=== PATIENT | female | born 1975 | race Caucasian/White ===

== ENCOUNTER 2016-04-25 20:19 | Emergency (ER) | payer MEDICAID ==
[~2016-04-25] VITALS: Ht 154.9 cm; Wt 58.9 kg
[~2016-04-25 20:19] MED LIST: CIPR500T4 PO; TRAM50TA2 PO
[2016-04-25 20:33] VITALS: Ht 154.9 cm; Wt 58.9 kg
[2016-04-25] MEDS ORDERED: ONDANSETRON (ODT) 4 MG TAB ODT STA (21:46)
[2016-04-25] MEDS ORDERED: KETOROLAC 30 MG INJ IM STA (21:46)
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
[2016-04-25 22:00] LABS: URINE BLOOD (Dip) POC 1+ (NEGATIVE)
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
[2016-04-25] MEDS ORDERED: IBUP400T22 PO (23:30)
[2016-04-25] MEDS ORDERED: ONDA4TAB8 PO (23:30)
[2016-04-25 23:56] VITALS: BP 111/66; PULSE 80; RESP 16
== END 2016-04-25 23:56 | disposition home or self-care (01) ==
LOC: FTE 20:19
DX: S09.90XA Unspecified injury of head, initial encounter (principal); R11.10 Vomiting, unspecified; R51 Headache; V43.62XA Car passenger injured in collision with other type car in traffic accident, initial encounter
CPT/HCPCS: 70450; 71020; 81003; 96372; J1885; Z7502; Z7610

== ENCOUNTER 2017-03-10 14:06 | Emergency (ER) | END 2017-03-10 17:14 | disposition home or self-care (01) ==

== ENCOUNTER 2018-08-23 18:30 | Emergency (ER) | payer MEDICAID ==
[~2018-08-23] VITALS: Ht 154.9 cm; Wt 61.2 kg
[~2018-08-23 18:30] MED LIST changes: +BENZ-6 PO; +IBUP-1542 PO; +IBUP-1561 PO; +ONDA4TAB8 PO; +PENI500T PO
[2018-08-23 19:03] VITALS: Ht 154.9 cm; Wt 61.2 kg
[2018-08-23 22:35] VITALS: BP 125/66; PULSE 78; RESP 20
--- NOTE | 2018-08-23 22:35 | ERD ---
ER Documentation Chief Complaint Chief Complaint PT REPORTS LOWER ABD PAIN X 3 DAYS DENIES N/V HPI The patient is a 42-year-old female, presenting to the ER because of lower abdominal pain with dysuria for the last 2 days, had similar symptoms previously, denies fever, chills, neck pain, chest pain, lower back pain, diarrhea, constipation. She does not smoke nor drink, LMP was August 09, 2017 Medical history: None Past surgical history: Cholecystectomy, tubal ligation ROS All systems reviewed and are negative except as per history of present illness. Medications Home Meds Active Scripts Ibuprofen* (Motrin*) 600 Mg Tab, 600 MG PO Q6H PRN for PAIN AND OR ELEVATED TEMP, #30 TAB Prov:BARBARA HERNANDEZ MD 08/23/18 Phenazopyridine Hcl* (Pyridium*) 200 Mg Tab, 200 MG PO TID PRN for URINARY PAIN, #6 TAB Prov:BARBARA HERNANDEZ MD 08/23/18 Sulfamethoxazole/Trimethoprim* (Bactrim Ds* Tablet) 1 Each Tablet, 1 TAB PO BID, #14 TAB Prov:BARBARA HERNANDEZ MD 08/23/18 Benzonatate* (Tessalon Perle*) 100 Mg Capsule, 100 MG PO Q8H PRN for COUGH for 3 Days, CAP Prov:MORENO TAPIA 03/10/17 Ibuprofen* (Motrin*) 600 Mg Tab, 600 MG PO Q6, #30 TAB Prov:MORENO TAPIA 03/10/17 Penicillin V Potassium* (Penicillin V K*) 500 Mg Tab, 500 MG PO TID for 10 Days, TAB Prov:MORENO TAPIA 03/10/17 Ondansetron Hcl* (Zofran*) 4 Mg Tablet, 4 MG PO Q8H PRN for NAUSEA AND/OR VOMITING, #30 TAB Prov:PROMISE SUE 04/25/16 Ibuprofen* (Motrin*) 400 Mg Tab, 400 MG PO Q6H PRN for PAIN AND OR ELEVATED TEMP, #30 TAB Prov:RICKY SUEAR F 04/25/16 Tramadol HCl (Tramadol HCl) 50 Mg Tablet, 50 MG PO Q4 PRN for PAIN, #20 TAB Prov:LUIS PEÑALOZA 12/04/15 Ciprofloxacin Hcl* (Ciprofloxacin Hcl*) 500 Mg Tablet, 500 MG PO BID for 5 Days, TAB Prov:LUIS PEÑALOZA 12/04/15 Allergies Allergies: Coded Allergies: No Known Allergies (Verified Allergy, Mild, 03/10/17) PMhx/Soc History of Surgery: Yes (gallbladder, tubal ligation) Anesthesia Reaction: No Hx Neurological Disorder: No Hx Respiratory Disorders: No Hx Cardiac Disorders: No Hx Psychiatric Problems: No Hx Miscellaneous Medical Probl: No Hx Alcohol Use: No Hx Substance Use: No Hx Tobacco Use: No Physical Exam Vitals Vital Signs Date Temp Pulse Resp B/P (MAP) Pulse Ox O2 O2 Flow FiO2 Time Delivery Rate 08/23/18 98.6 78 20 125/66 98 Room Air 22:35 (85) 08/23/18 98.4 73 16 109/59 99 19:03 (76) Physical Exam Const: No acute distress. Head: Atraumatic. Eyes: Normal Conjunctiva. ENT: Normal External Ears, Nose and Mouth. Neck: Full range of motion. No meningismus. Resp: Clear to auscultation bilaterally. Cardio: Regular rate and rhythm. Abd: Soft, non distended, normal bowel sounds, minimal suprapubic abdominal discomfort, no right lower quadrant/right upper quadrant/epigastric/CVA tenderness Skin: No petechiae or rashes. Back: No midline or flank tenderness. Ext: No cyanosis, or edema. Neur: Awake and alert. No focal deficit Psych: Normal Mood and Affect. Result Diagram: 08/23/18224008/23/182240 Results 24 hrs Laboratory Tests Test 08/23/18 22:41 08/23/18 22:44 08/23/18 22:48 White Blood Count 10.1 10^3/ul Red Blood Count 4.88 10^6/ul Hemoglobin 14.0 g/dl Hematocrit 43.4 % Mean Corpuscular Volume 88.9 fl Mean Corpuscular Hemoglobin 28.7 pg Mean Corpuscular 32.3 g/dl Hemoglobin Concent Red Cell Distribution Width 12.1 % Platelet Count 255 10^3/UL Mean Platelet Volume 11.0 fl Immature Granulocytes % 0.500 % Neutrophils % 51.1 % Lymphocytes % 39.2 % Monocytes % 8.0 % Eosinophils % 0.8 % Basophils % 0.4 % Nucleated Red Blood Cells % 0.0 /100WBC Immature Granulocytes # 0.050 10^3/ul Neutrophils # 5.1 10^3/ul Lymphocytes # 4.0 10^3/ul Monocytes # 0.8 10^3/ul Eosinophils # 0.1 10^3/ul Basophils # 0.0 10^3/ul Nucleated Red Blood Cells # 0.0 10^3/ul Sodium Level 140 mmol/L Potassium Level 3.8 mmol/L Chloride Level 101 mmol/L Carbon Dioxide Level 28 mmol/L Anion Gap 11 Blood Urea Nitrogen 16 mg/dl Creatinine 0.69 mg/dl Est Glomerular Filtrat Rate mL/min > 60 mL/min Glucose Level 95 mg/dl Calcium Level 9.8 mg/dl Total Bilirubin 0.2 mg/dl Direct Bilirubin 0.00 mg/dl Indirect Bilirubin 0.2 mg/dl Aspartate Amino Transf (AST/SGOT) 22 IU/L Alanine 15 IU/L Aminotransferase (ALT/SGPT) Alkaline Phosphatase 52 IU/L Total Protein 8.3 g/dl Albumin 4.7 g/dl Globulin 3.60 g/dl Albumin/Globulin Ratio 1.30 Lipase 122 U/L POC Beta HCG, Qualitative NEGATIVE Bedside Urine pH (LAB) 7.0 Bedside Urine Protein (LAB) Negative Bedside Urine Glucose (UA) Negative Bedside Urine Ketones (LAB) Negative Bedside Urine Blood Trace-intact Bedside Urine Nitrite (LAB) Negative Bedside Urine Leukocyte Esterase 1+ (L Current Medications Medications Dose Sig/Maurice Start Time Status Last (Trade) Ordered Route PRN Stop Time Admin Dose Reason Admin Sodium 1,000 ml @ Q1H STAT 08/23/18 DC 08/23/18 Chloride 1,000 mls/hr IV 22:38 22:53 08/23/18 23:37 Ketorolac 30 mg ONCE ONCE 08/23/18 DC 08/23/18 Tromethamine IV 22:53 23:33 (Toradol) 08/23/18 22:54 1 tab ONCE ONCE 08/23/18 DC 08/23/18 Trimethoprim/ PO 23:00 23:33 08/23/18 23:01 Sulfamethoxaz ole (Bactrim (Ds)) Procedures/MDM MEDICAL MAKING DECISION: The patient is a 42-year-old female, presenting with acute cystitis, was treated with 1 L normal saline for clinical dehydration, Toradol 30 mg IV for pain and Bactrim DS for acute cystitis with good response, is above outpatient follow-up The differential diagnoses considered include but are not limited to choledocholithiasis, cholangitis, pancreatitis, hepatitis, gastritis, peptic ulcer disease, gastric ulcer, appendicitis, cystitis, diverticulitis, partial small bowel obstruction. Departure Diagnosis: Primary Impression: Abdominal pain Additional Impression: UTI (urinary tract infection) Condition: Good Comments She was discharged with Bactrim DS, Pyridium, Motrin I discussed the findings with the patient. I advised the patient to follow-up with the primary physician in about 2-3 days, sooner if needed and return if any concern. Disclaimer: Inadvertent spelling and grammatical errors are likely due to EHR/dictation software use and do not reflect on the overall quality of patient care. Also, please note that the electronic time recorded on this note does not necessarily reflect the actual time of the patient encounter. BARBARA HERNANDEZ MD Aug 23, 2018 22:35
[2018-08-23] MEDS ORDERED: SOD CHLORIDE 0.9% 1,000 ML IV STA (22:38)
[2018-08-23] MEDS ORDERED: KETOROLAC 15 MG INJ IV ONE (22:53)
[2018-08-23] MEDS ORDERED: TRIMETHOPRIM/SULFAMETHOX (DS) TAB PO ONE (23:00)
[2018-08-23] MEDS ORDERED: IBUP-1542 PO (23:17)
[2018-08-23] MEDS ORDERED: PHEN-538 PO (23:17)
[2018-08-23] MEDS ORDERED: SULF1TAB31 PO (23:17)
== END 2018-08-23 23:43 | disposition home or self-care (01) ==
LOC: E/R 18:30
DX: N39.0 Urinary tract infection, site not specified (principal)
CPT/HCPCS: 36415; 80053; 81003; 81025; 83690; 85025; 96374; J1885; J7030; Z7502; Z7610

== ENCOUNTER 2018-09-19 21:42 | Emergency (ER) | payer MEDICAID ==
[~2018-09-19] VITALS: Ht 154.9 cm; Wt 61.7 kg
[~2018-09-19 21:42] MED LIST changes: -BENZ-6 PO; -CIPR500T4 PO; -IBUP-1561 PO; -ONDA4TAB8 PO; -PENI500T PO; +PHEN-538 PO; +SULF1TAB31 PO; -TRAM50TA2 PO
[2018-09-19 21:48] VITALS: Ht 154.9 cm; Wt 61.7 kg
[2018-09-20] MEDS ORDERED: IBUPROFEN 600 MG TAB PO ONE
[2018-09-20] MEDS ORDERED: LORAZEPAM 1 MG TAB PO ONE
[2018-09-20] MEDS ORDERED: IBUP-1542 PO (01:01)
[2018-09-20] MEDS ORDERED: HYDR-843 PO (01:01)
[2018-09-20 01:07] VITALS: BP 109/66; PULSE 69; RESP 19
--- NOTE | 2018-09-20 01:27 | ERD ---
ER Documentation Chief Complaint Chief Complaint LEFT BREAST PAIN STARTED AT 1630; DENIES SOB, DENIES CP HPI 43-year-old female presents to the emergency department complaining of left- sided chest pain intermittently for the past 2 weeks. She states that onsets when she is feeling anxious and in an argument with her son. She is tried no medication for relief of symptoms. She reports a dull pain in the chest which comes and goes. She denies any fevers, chills, shortness of breath, or other symptoms at this time. She does admit to feeling anxious right now. She adamantly denies homicidal or suicidal ideation. ROS All systems reviewed and are negative except as per history of present illness. Medications Home Meds Active Scripts Ibuprofen* (Motrin*) 600 Mg Tab, 600 MG PO Q6, #30 TAB Prov:LUIS TIRADO PA-C 09/20/18 Hydroxyzine Hcl* (Hydroxyzine Hcl*) 25 Mg Tablet, 25 MG PO Q8H PRN for ANXIETY, #30 TAB Prov:LUIS TIRADO PA-C 09/20/18 Ibuprofen* (Motrin*) 600 Mg Tab, 600 MG PO Q6H PRN for PAIN AND OR ELEVATED TEMP, #30 TAB Prov:BARBARA HERNANDEZ MD 08/23/18 Phenazopyridine Hcl* (Pyridium*) 200 Mg Tab, 200 MG PO TID PRN for URINARY PAIN, #6 TAB Prov:BARBARA HERNANDEZ MD 08/23/18 Sulfamethoxazole/Trimethoprim* (Bactrim Ds* Tablet) 1 Each Tablet, 1 TAB PO BID, #14 TAB Prov:BARBARA HERNANDEZ MD 08/23/18 Allergies Allergies: Coded Allergies: No Known Allergies (Unverified Allergy, Mild, 08/24/18) PMhx/Soc Medical and Surgical Hx: pt denies Medical Hx History of Surgery: Yes (gallbladder, tubal ligation) Anesthesia Reaction: No Hx Neurological Disorder: No Hx Respiratory Disorders: No Hx Cardiac Disorders: No Hx Psychiatric Problems: No Hx Miscellaneous Medical Probl: No Hx Alcohol Use: No Hx Substance Use: No Hx Tobacco Use: No FmHx Family History: No diabetes Physical Exam Vitals Vital Signs Date Temp Pulse Resp B/P (MAP) Pulse Ox O2 O2 Flow FiO2 Time Delivery Rate 09/20/18 98.1 69 19 109/66 100 Room Air 01:07 (80) 09/19/18 98.0 83 19 107/57 97 21:48 (74) Physical Exam Const: No acute distress Head: Atraumatic Eyes: Normal Conjunctiva ENT: Normal External Ears, Nose and Mouth. Neck: Full range of motion. No meningismus. Resp: Clear to auscultation bilaterally Cardio: Regular rate and rhythm, no murmurs Abd: Soft, non tender, non distended. Normal bowel sounds Skin: No petechiae or rashes Back: No midline or flank tenderness Ext: No cyanosis, or edema Neur: Awake and alert Psych: Normal Mood and Affect Result Diagram: 09/19/18 2353 09/20/18 0005 Results 24 hrs Laboratory Tests Test 09/19/18 23:53 09/20/18 00:05 White Blood Count 11.1 10^3/ul Red Blood Count 4.79 10^6/ul Hemoglobin 14.0 g/dl Hematocrit 42.1 % Mean Corpuscular Volume 87.9 fl Mean Corpuscular Hemoglobin 29.2 pg Mean Corpuscular Hemoglobin Concent 33.3 g/dl Red Cell Distribution Width 12.0 % Platelet Count 278 10^3/UL Mean Platelet Volume 10.7 fl Immature Granulocytes % 0.500 % Neutrophils % 59.3 % Lymphocytes % 31.6 % Monocytes % 7.1 % Eosinophils % 1.2 % Basophils % 0.3 % Nucleated Red Blood Cells % 0.0 /100WBC Immature Granulocytes # 0.050 10^3/ul Neutrophils # 6.6 10^3/ul Lymphocytes # 3.5 10^3/ul Monocytes # 0.8 10^3/ul Eosinophils # 0.1 10^3/ul Basophils # 0.0 10^3/ul Nucleated Red Blood Cells # 0.0 10^3/ul Sodium Level 142 mmol/L Potassium Level 4.3 mmol/L Chloride Level 103 mmol/L Carbon Dioxide Level 28 mmol/L Anion Gap 11 Blood Urea Nitrogen 17 mg/dl Creatinine 0.82 mg/dl Est Glomerular Filtrat Rate mL/min > 60 mL/min Glucose Level 117 mg/dl Calcium Level 10.0 mg/dl Troponin I < 0.012 ng/ml Current Medications Medications Dose Sig/Maurice Start Time Status Last (Trade) Ordered Route PRN Stop Time Admin Dose Reason Admin Lorazepam 1 mg ONCE ONCE 7/17/19 DC 09/20/18 (Ativan) PO 00:00 00:05 09/20/18 00:01 Ibuprofen 600 mg ONCE ONCE 09/20/18 DC 09/20/18 (Motrin) PO 00:00 00:05 09/20/18 00:01 [place] [id number] Radiology Main Line: [phone] DIAGNOSTIC IMAGING REPORT Patient: YO DICKEY : 1975 Age: 43 Sex: F MR #: [id number] DOS: 09/19/18 2336 Ordering MD: LUIS TIRADO PA-C Location: [facility] Room/Bed: PROCEDURE: XR Chest. CLINICAL INDICATION: Chest pain TECHNIQUE: Single portable view of the chest was obtained COMPARISON: CR CHEST 04/25/2016 FINDINGS: The trachea is midline. The cardiac silhouette and pulmonary vascularity are within normal limits. The lungs are clear. The costophrenic angles are sharp. IMPRESSION: 1. No evidence of acute cardiopulmonary disease. RPTAT: AAPP Physician Michael Date Time Electronically viewed and signed by Physician Michael on 09/20/2018 00:26 JL/ CC: LUIS TIRADO PA-C [id number] Procedures/MDM 43-year-old female presents to the emergency department complaining of intermittent chest pain for the past several weeks. Patient's vital signs are stable and she is nontoxic and well-appearing. EKG and chest x-ray within normal limits. I have low suspicion for acute coronary syndrome, pneumothorax, pulmonary embolism, aortic dissection, pneumonia, or other emergencies. Patient symptoms are likely secondary to anxiety reaction. Patient was stable and appropriate for discharge and further outpatient management. Patient's thoracic symptoms have stabilized while in the department and are stable for outpatient follow up. Exam and work up not consistent w/ ischemia, arrhythmia, PE or dissection. EKG: Interpreted by ED physician. Rate/Rhythm: Sinus bradycardia with a rate of 58 bpm. QRS, ST, T-waves: No changes consistent w/ acute ischemia Impression: No evidence of ischemia or arrhythmia Departure Diagnosis: Primary Impression: Anxiety reaction Condition: Fair Patient Instructions: Your Body's Response to Anxiety Referrals: [facility] YOU HAVE RECEIVED A MEDICAL SCREENING EXAM AND THE RESULTS INDICATE THAT YOU DO NOT HAVE A CONDITION THAT REQUIRES URGENT TREATMENT IN THE EMERGENCY DEPARTMENT. FURTHER EVALUATION AND TREATMENT OF YOUR CONDITION CAN WAIT UNTIL YOU ARE SEEN IN YOUR DOCTORS OFFICE WITHIN THE NEXT 1-2 DAYS. IT IS YOUR RESPONSIBILITY TO MAKE AN APPOINTMENT FOR FOLOW-UP CARE. IF YOU HAVE A PRIMARY DOCTOR --you should call your primary doctor and schedule an appointment IF YOU DO NOT HAVE A PRIMARY DOCTOR YOU CAN CALL OUR PHYSICIAN REFERRAL HOTLINE AT IF YOU CAN NOT AFFORD TO SEE A PHYSICIAN YOU CAN CHOSE FROM THE FOLLOWING [facility] [address] [facility]. [facility] [address] [facility] [facility] [address] [facility] [address] [facility] [address] [facility] [facility]. [address] Additional Instructions: Llame al doctor MAANA y vitor grant ROSE PARA DENTRO DE 1-2 ORTEZ.Dgale a la secre taria que nosotros le instruimos hacer esta rose.Avise o llame si villareal condicin se empeora antes de la rose. Regresa aqui si peor o no mejor. LUIS TIRADO PA-C Sep 20, 2018 01:27
== END 2018-09-20 01:12 | disposition home or self-care (01) ==
LOC: FTE 21:42
DX: F41.9 Anxiety disorder, unspecified (principal)
CPT/HCPCS: 71045; 80048; 84484; 85025; 93005; Z7502; Z7610